=== PATIENT | male | born 1995 | race Caucasian/White ===

== ENCOUNTER 2017-05-08 21:34 | Emergency (ER) | payer SELFPAY ==
[~2017-05-08] VITALS: Ht 170.2 cm; Wt 67.5 kg
[2017-05-08 21:47] VITALS: Ht 170.2 cm; Wt 67.5 kg
[2017-05-08] MEDS ORDERED: ONDANSETRON (ODT) 4 MG TAB ODT STA (22:29)
[2017-05-08] MEDS ORDERED: morphine 10 MG INJ IM ONE (22:30)
--- NOTE | 2017-05-08 22:58 | ERD ---
ER Documentation Chief Complaint Date/Time DATE: 05/08/17 TIME: 22:57 Chief Complaint rectal pain, with no bleeding or discharge HPI This is a 21-year-old male complains of rectal pain. He says he been very constipated the past few days and he feels like there is a ball on the outside of his rectum. No fevers no chills no nausea no vomiting. No trauma. No sexual contact. No other current issues. ROS All systems reviewed and are negative except as per history of present illness. Allergies Allergies: Coded Allergies: No Known Allergy (Unverified , 05/08/17) PMhx/Soc History of Surgery: No Anesthesia Reaction: No Hx Neurological Disorder: No Hx Respiratory Disorders: No Hx Cardiac Disorders: No Hx Psychiatric Problems: No Hx Miscellaneous Medical Probl: No Hx Alcohol Use: Yes Hx Substance Use: Yes Hx Tobacco Use: No Physical Exam Vitals Vital Signs Date Time Temp Pulse Resp B/P Pulse Ox O2 Delivery O2 Flow Rate FiO2 05/08/17 21:47 98.2 96 18 140/86 100 Physical Exam Const: [] Head: Atraumatic Eyes: Normal Conjunctiva ENT: Normal External Ears, Nose and Mouth. Neck: Full range of motion..~ No meningismus. Resp: Clear to auscultation bilaterally Cardio: Regular rate and rhythm, no murmurs Abd: Soft, non tender, non distended. Normal bowel sounds Skin: No petechiae or rashes Back: No midline or flank tenderness Ext: No cyanosis, or edema Neur: Awake and alert Psych: Normal Mood and Affect exam shows hemorrhoid at 9 o'clock position non-strangulated nonincarcerated no active bleeding Results 24 hrs Current Medications Medications (Trade) Dose Ordered Sig/Zenon Route PRN Reason Start Time Stop Time Status Last Admin Dose Admin Morphine Sulfate (morphine) 4 mg ONCE ONCE IM 05/08/17 22:30 05/08/17 22:31 DC 05/08/17 22:38 Ondansetron HCl (Zofran Odt) 4 mg ONCE STAT ODT 05/08/17 22:29 05/08/17 22:31 DC 05/08/17 22:37 Procedures/MDM Medical decision-makin-year-old male with hemorrhoid. Patient be discharged home with Proctofoam and stool softeners. Follow-up with PCP. Return for worsening symptoms. X-ray Abdomen 1V Interpreted by me: Free Air: [None] Bowel Gas: [Constipation pattern Soft Tissue: [Normal] Departure Diagnosis: Primary Impression: Hemorrhoid Hemorrhoid type: unspecified Qualified Code: K64.9 - Hemorrhoids, unspecified hemorrhoid type Additional Impression: Constipation Constipation type: unspecified constipation type Qualified Code: K59.00 - Constipation, unspecified constipation type Condition: Stable MARCY MARKHAM May 08, 2017 22:58
[2017-05-08] MEDS ORDERED: DOCU-144 PO (22:59)
[2017-05-08] MEDS ORDERED: HYDR10FO PR (22:59)
--- NOTE | 2017-05-09 00:19 | RADRPT ---
PROCEDURE: ABDOMINAL - 2 VIEWS CLINICAL INDICATION: 21-year-old male with abdominal pain and constipation. TECHNIQUE: AP supine views of the abdomen were obtained. The images reviewed on a PACS workstatio n. COMPARISON: None. FINDINGS: The lung bases are unremarkable. There is mild gas within the stomach. There is mild retained stoo l and air throughout the colon without gross bowel obstruction. There are no abnormal calcifications overlying the urinary tracts. The osseous structures are unremarkable. IMPRESSION: Mild retained stool without gross bowel obstruction. .Nick Valencia MD, MD Date Time Electronically viewed and signed by .Nick Valencia MD, MD on 05/09/2017 00:19 .M/
== END 2017-05-08 23:00 | disposition home or self-care (01) ==
LOC: E/R 21:34
DX: K64.9 Unspecified hemorrhoids (principal); K59.00 Constipation, unspecified
CPT/HCPCS: 74000; 96372; 99284; J2270

== ENCOUNTER 2017-05-11 17:37 | Emergency (ER) | payer SELFPAY ==
[~2017-05-11] VITALS: Ht 167.6 cm; Wt 67.0 kg
[~2017-05-11 17:37] MED LIST: DOCU-144 PO; HYDR10FO PR
[2017-05-11 17:40] VITALS: Ht 167.6 cm; Wt 67.0 kg
== END 2017-05-11 19:49 | disposition left against medical advice (07) ==
LOC: FTE 17:37
DX: Z53.21 Procedure and treatment not carried out due to patient leaving prior to being seen by health care provider (principal)

== ENCOUNTER 2018-04-26 13:25 | Emergency (ER) | END 2018-04-26 18:01 | disposition home or self-care (01) ==